=== PATIENT | male | born 1985 | race African-American/Black ===

== ENCOUNTER 2017-05-24 00:37 | Emergency (ER) | payer MEDICAID, OTHER | END 2017-05-24 02:00 | disposition left against medical advice (07) | LOC: ER 00:45 | DX: Z53.21 Procedure and treatment not carried out due to patient leaving prior to being seen by health care provider (principal) ==

== ENCOUNTER 2017-08-24 05:33 | Emergency (ER) | payer MEDICAID ==
[~2017-08-24] VITALS: Ht 177.8 cm; Wt 69.4 kg
[2017-08-24] MEDS ORDERED: IBUPROFEN 600MG TABLET PO ONE (06:30)
[2017-08-24] MEDS ORDERED: BACITRACIN ZINC OINT UDPKT TOP ONE (06:30)
[2017-08-24 08:53] VITALS: BP 137/101
== END 2017-08-24 08:57 | disposition home or self-care (01) ==
LOC: ER 05:33
DX: S61.451A Open bite of right hand, initial encounter (principal); S61.452A Open bite of left hand, initial encounter; M79.631 Pain in right forearm; W54.0XXA Bitten by dog, initial encounter; Y93.89 Activity, other specified; Y92.89 Other specified places as the place of occurrence of the external cause; Y99.8 Other external cause status
CPT/HCPCS: 73090; 73130; 99284